=== PATIENT | female | born 1995 | race Caucasian/White ===

== ENCOUNTER → 2023-05-13 15:00 | Outpatient (ROUT) | payer OTHER, MEDICAID, SELFPAY ==
[2023-05-14 13:42] LABS: Candida species Positive (Negative); Gardnerella vaginalis Negative (Negative); Trichomoas vaginalis Negative (Negative)
== END ==
PROVIDERS: Visit Provider Physician Assistant Medical
DX: N89.8 Other specified noninflammatory disorders of vagina (principal); Z20.2 Contact with and (suspected) exposure to infections with a predominantly sexual mode of transmission
CPT/HCPCS: 87480; 87510; 87660

== ENCOUNTER → 2023-05-13 16:38 | Outpatient (CLI) | payer OTHER, MEDICAID, SELFPAY ==
[2023-05-13 17:24] LABS: Add Manual Diff / Slide Review NO; Basophils Absolute Auto 100 /uL (0-100); Basophils Percent Auto 1.3 % (0-2); Eosinophils Absolute Auto 100 /uL (0-450); Eosinophils Percent Auto 2.3 % (2-4); Hematocrit 37.7 % (36-46); Hemoglobin 12.7 g/dL (12.0-16.0); Lymphocytes Absolute Auto 2400 /uL (1100-4500); Lymphocytes Percent Auto 37.3 % (25-40); Mean Corpuscular HGB Conc 33.8 % (30-36); Mean Corpuscular Hemoglobin 27.2 PG (26-34); Mean Corpuscular Volume 80.6 fL (80-100); Monocytes Absolute Auto 500 /uL (0-900); Monocytes Percent Auto 7.9 % (3-14); Neutrophils Absolute Auto 3200 /uL (1500-7000); Neutrophils Percent Auto 51.2 % (50-75); Platelet Count 310 X10^3/uL (150-400); Red Blood Cell Count 4.68 X10^6/uL (4.0-5.2); Red Cell Distribution Width 13.3 % (11.6-14.8); White Blood Cell Count 6.3 X10^3/uL (4.5-11.0)
[2023-05-13 17:55] LABS: INR 1.1 (0.9-1.3); Prothrombin Time 12.2 SECONDS (9.4-12.5)
[2023-05-13 17:58] LABS: PTT Partial Thromboplastin Tim 33 SECONDS (25.1-36.5)
[2023-05-13 18:34] LABS: TSH w/ Reflex to FT4 1.84 uIU/mL (0.47-4.68)
[2023-05-13 19:35] LABS: HIV 1 & 2 Ab/Ag 4th Gen Combo NEGATIVE (NEGATIVE); Hep C Virus Ab w/Reflex Quant NEGATIVE s/c (NEGATIVE); Hepatitis B Surface Antigen NEGATIVE s/c (NEGATIVE)
[2023-05-15 03:47] LABS: RPR Screen Non Reactive (Non Reactive)
[2023-05-17 16:58] LABS: Factor VIII Activity, Clotting 66 % (56-140); Von Willebrand Factor Antigen 74 % (50-200)
[2023-05-19 17:27] LABS: HSV 2 IGG AB 0.95
== END ==
PROVIDERS: Referring Provider Physician Assistant Medical; Visit Provider Physician Assistant Medical
DX: N92.0 Excessive and frequent menstruation with regular cycle (principal); R79.1 Abnormal coagulation profile; O72.1 Other immediate postpartum hemorrhage; N89.8 Other specified noninflammatory disorders of vagina; Z20.2 Contact with and (suspected) exposure to infections with a predominantly sexual mode of transmission; Z11.3 Encounter for screening for infections with a predominantly sexual mode of transmission
CPT/HCPCS: 36415; 84443; 85025; 85240; 85246; 85610; 85730; 86592; 86695; 86696; 86803; 87340; 87389; 87480; 87510; 87660

== ENCOUNTER → 2023-05-20 06:56 | Outpatient (CLI) | payer OTHER, MEDICAID, SELFPAY ==
--- NOTE | 2023-05-20 06:57 | DI.US.S_ITS ---
PROCEDURE: US PELVIC COMPLETE INDICATIONS: Left pelvic pain and menorrhagia TECHNIQUE: Real-time scanning was performed of the pelvic organs, with image documentation. Additional endovaginal scanning was necessary due to incomplete visualization of the adnexal and endometrial structures by transabdominal scanning. COMPARISON: None. FINDINGS: Uterus: Uterus is anteverted and normal in size at 8.4 x 4.5 x 5.6 cm. The myometrium is homogeneous. The endometrium measures 8.3 mm combined thickness. Ovaries: The right ovary measures 1.6 x 2.9 x 1.6 cm, with a calculated ovarian volume of 3.9 cc. The left ovary measures 1.8 x 4.2 x 2.1 cm, with a calculated ovarian volume of 8.3 cc. The ovaries have a normal sonographic appearance. Less than 12 follicles can be seen in each ovary. No adnexal masses are seen. There is an involuting cyst in the left ovary measuring 1.8 x 1.3 x 2.0 cm. Other: No pathologic free abdominal or pelvic fluid. IMPRESSION: Normal sonographic appearance of the uterus and endometrium. Normal sonographic appearance of the bilateral ovaries. Involuting left ovarian simple cyst measuring up to 2.0 centimeters. We strive to produce accurate, complete, and clear reports of imaging services. To assist us in improving patient care, this report was composed using standard report templates and voice recognition software. Therefore, it may contain abnormal punctuation, insertions and/or omissions. Occasional wrong-word or sound-alike substitutions may occur. Though we review the report and make efforts to correct it, we do recommend that the report be read carefully in proper context to recognize any text inaccuracies. Approved by: Yady Hatfield M.D. on 05/20/2023 at 9:02
== END ==
LOC: US 06:57
PROVIDERS: Referring Provider Physician Assistant Medical; Visit Provider Physician Assistant Medical
DX: N92.0 Excessive and frequent menstruation with regular cycle (principal); N83.292 Other ovarian cyst, left side; R10.2 Pelvic and perineal pain
CPT/HCPCS: 76830; 76856; 93976

== ENCOUNTER 2023-06-15 00:55 | Emergency (ER) | payer OTHER, MEDICAID, SELFPAY ==
[2023-06-15] VITALS (10 sets, daily range): BP systolic 114–157; BP diastolic 71–89; PULSE 93–138; RESP 12–21; TEMP 36.4–36.7; O2SAT 81–100; BMI 18.8
--- NOTE | 2023-06-15 00:58 | ED.ARRPALP ---
HPI - Arrhythmia/Palpitations General Chief Complaint: Arrhythmia/Palpitations Stated Complaint: fast heartbeat/chest pain Time Seen by Provider: 06/15/23 00:56 Source: patient, RN notes reviewed and old records reviewed Mode of arrival: Ambulatory Limitations: no limitations History of Present Illness HPI narrative: 27-year-old female with a history of sinus tachycardia who presents with complaint of substernal left-sided chest pain that has been going on throughout the day and started yesterday. Patient states radiates towards her back. Denies fevers or chills no cold cough or congestion. She does feel little short of breath. Patient denies any nausea or vomiting. No syncope. She is felt little lightheaded occasionally. No diarrhea or constipation, no urinary symptoms. No swelling bilateral lower extremities. She states heart rate tends to run in the 100-120 range. She states she has seen a hemstitching machine operator in the past she is sinus tachycardia. Patient states they did not tell her any other causes. She has not on any daily medications. No oral contraceptives or estrogen. States no prior surgeries besides eyes surgeries when she was very young. Denies tobacco, denies alcohol, denies recreational drugs. Denies any caffeine intake. Related Data Previous Rx's Medication Instructions Recorded fluconazole 150 mg tablet 150 mg PO Q3D 2 doses #2 tabs 05/17/23 imiquimod 5 % topical cream packet 1 applic topical .COMPLEX #12 ea 05/28/23 Allergies Allergy/AdvReac Type Severity Reaction Status Date / Time No Known Drug Allergies Allergy Unverified 05/13/23 10:05 Review of Systems Review of Systems ROS Unobtainable: All systems reviewed & are unremarkable except as noted in HPI and below Patient History Medical History Hx of sinus tachycardia Vaginal Discharge Pelvic pain hemorrhage Prolonged bleeding time Menorrhagia Social History Smoking Status: Never smoker Smoking Status: Never smoker Exam Narrative Exam Narrative: GENERAL: Alert and oriented x three, thin female in mild distress HEENT: Head normocephalic, atraumatic, EOMI, pupils reactive, face symmetric, moist mucous membranes NECK: Supple, full range of motion CARDIOVASCULAR: Tachycardic but regular rate and rhythm without murmurs, rubs or gallops. No JVD. No swelling bilateral lower extremities. RESPIRATORY: Breath sounds equal bilaterally, no wheezes rales or rhonchi. No tachypnea or accessory muscle use. Patient's speaks in full sentences. ABDOMEN: Soft, nontender. Nondistended. Normoactive bowel sounds all 4 quadrants. No guarding or rebound, rigidity, no mass : No CVA tenderness EXTREMITIES: Normal range of motion, no clubbing or edema. Neurovascularly intact NEUROLOGICAL: Cranial nerves II through XII grossly intact. Moving all extremities. Normal gait. SKIN: Warm, dry, no petechiae, no rashes or lesions. Initial Vital Signs Initial Vital Signs: Vital Signs Temperature 98.1 F 06/15/23 01:03 Pulse Rate 138 H 06/15/23 01:03 Respiratory Rate 20 06/15/23 01:03 Blood Pressure 157/89 H 06/15/23 01:03 Pulse Oximetry 100 06/15/23 01:03 Oxygen Delivery Method Room Air 06/15/23 01:03 Scores PERC Score Age greater than or equal to 50 years: No Heart rate greater than or equal to 100 bpm: Yes Room Air O2 Sat less than 95%: No Unilateral leg swelling: No Recent trauma or surgery: No Hemoptysis: No Prior PE or DVT: No Hormone Use: No Total PERC Score: 1 Course Orders Ordered: ED Orders 06/15/23 01:08 XR chest 1V Stat EKG-12 Lead Stat 06/15/23 01:15 Complete Blood Count AUTO DIFF Stat Comprehensive Metabolic Panel Stat D Dimer Stat Lipase Stat Magnesium Stat Troponin & CK Cardiac Panel Stat 06/15/23 01:57 CT angio chest PE protocol Stat Discontinued Medications Sodium Chloride (Normal Saline 0.9%) 1,000 mls @ 1,000 mls/hr IV BOLUS ONE Stop: 06/15/23 02:11 Last Infusion: 06/15/23 03:08 Dose: Infused Documented By: Admin: 06/15/23 01:35 Dose: 1,000 mls/hr Documented By: LEONARDO Vital Signs Vital signs: Vital Signs - 8 hr 06/15/23 01:03 06/15/23 01:05 06/15/23 01:06 Temperature 98.1 F Pulse Rate 138 H 115 H 116 H Respiratory Rate 20 17 21 Blood Pressure 157/89 H Pulse Oximetry 100 100 100 Oxygen Delivery Method Room Air 06/15/23 01:06 06/15/23 01:30 06/15/23 01:30 Temperature Pulse Rate 99 H Respiratory Rate 12 Blood Pressure 132/84 116/79 Pulse Oximetry 97 Oxygen Delivery Method 06/15/23 02:00 06/15/23 02:00 06/15/23 02:34 Temperature Pulse Rate 93 H Respiratory Rate 17 Blood Pressure 115/80 Pulse Oximetry 98 81 L Oxygen Delivery Method Room Air 06/15/23 02:35 06/15/23 02:35 06/15/23 03:00 Temperature Pulse Rate 99 H 94 H Respiratory Rate 21 18 Blood Pressure 118/76 Pulse Oximetry 100 97 Oxygen Delivery Method 06/15/23 03:00 06/15/23 03:30 06/15/23 03:30 Temperature Pulse Rate 95 H Respiratory Rate 14 Blood Pressure 114/78 118/71 Pulse Oximetry 96 Oxygen Delivery Method 06/15/23 03:41 Temperature 97.6 F Pulse Rate Respiratory Rate Blood Pressure Pulse Oximetry Oxygen Delivery Method MDM - Arrhythmia/Palpitations Lab Data 06/15/23 01:15 06/15/23 01:15 Labs: Lab Results 06/15/23 Range/Units 01:15 WBC 6.9 (4.5-11.0) X10^3/uL RBC 4.20 (4.0-5.2) X10^6/uL Hgb 11.3 L (12.0-16.0) g/dL Hct 33.6 L (36-46) % MCV 80.2 (80-100) fL MCH 26.9 (26-34) PG MCHC 33.5 (30-36) % RDW 14.1 (11.6-14.8) % Plt Count 230 (150-400) X10^3/uL Neut % (Auto) 44.1 L (50-75) % Lymph % (Auto) 42.0 H (25-40) % [place] % (Auto) 10.6 (3-14) % Eos % (Auto) 2.3 (2-4) % Baso % (Auto) 1.0 (0-2) % Neut # (Auto) 3000 (7193-1603) /uL Lymph # (Auto) 2900 (2017-6692) /uL [place] # (Auto) 700 (0-900) /uL Eos # (Auto) 200 (0-450) /uL Baso # (Auto) 100 (0-100) /uL D-Dimer 1465 H (<500) ng/ml Sodium 138 (137-145) mmol/L Potassium 3.4 (3.4-5.1) mmol/L Chloride 105 (98-107) mmol/L Carbon Dioxide 24 (22-32) mmol/L BUN 19 H (7-17) mg/dL Creatinine 0.69 (0.52-1.04) mg/dL Estimated GFR > 60 (>60) mL/min BUN/Creatinine Ratio 27.5 H (6-22) Glucose 108 H (70-100) mg/dL Calcium 9.0 (8.4-10.2) mg/dL Magnesium 1.6 (1.6-2.3) mg/dL Total Bilirubin 0.4 (0.2-1.3) mg/dL AST 24 (14-36) IU/L ALT 15 (<35) IU/L Alkaline Phosphatase 59 (38-126) U/L Total Creatine Kinase 57 (30-135) U/L Troponin I < 0.012 (0.01-0.034) ng/mL Total Protein 7.3 (6.3-8.2) g/dL Albumin 4.3 (3.5-5.0) g/dL Globulin 3.0 (1.7-4.1) g/dL Albumin/Globulin Ratio 1.4 (1.0-2.8) Lipase 172 (23-300) U/L Imaging Data Chest x-ray: Radiologist's Impresson: [address] [address] XRay Report Signed Patient: Jeyson Bullock MR#: [id number] : 1995 Acct:[id number] Age/Sex: 27 / F Date of Service: 06/15/23 Loc: ED Accession Number: [id number] Procedure: XR chest 1V Ordering Provider: Kamila Cortez D.O. PROCEDURE: XR CHEST 1V INDICATIONS: chest pain TECHNIQUE: One view of the chest was acquired. COMPARISON: None. FINDINGS: Surgical changes and devices: None. Lungs and pleura: Lungs are clear. No pleural effusions or pneumothorax. Mediastinum: Mediastinal contours appear normal. Heart size is normal. Bones and chest wall: No suspicious bony lesions. Overlying soft tissues appear unremarkable. IMPRESSION: No acute cardiopulmonary abnormality is seen. Dictated by: Placido Paul M.D. on 06/15/2023 at 1:27 Approved by: Placido Paul M.D. on 06/15/2023 at 1:27 CT scan - chest: Radiologist's Impresson: Lungs are clear.? No infiltrate, consolidation, atelectasis or mass appreciated.? No pleural or pericardial effusion is evident.? Heart size is normal.? No mediastinal or hilar adenopathy.? Central airways are unremarkable.? No significant abnormality aorta is appreciated.? No evidence of aneurysm or dissection.? Images through upper portion of the abdomen are unremarkable.? No significant bone lesion identified.? Suboptimal opacification peripheral pulmonary arterial tree.? Small peripheral embolus not ruled out.? There is no evidence of pulmonary infarct. ECG Data Attestation: I personally reviewed and interpreted this ECG as follows: Prior ECG tracings: not available for review Interpretation: Sinus tachycardia rate of 111 DE 176 QRS [address]TC [address] Patient has [address] depression in leads [address] elevation appreciated. No priors for comparison. MDM Narrative Medical decision making narrative: 27-year-old female with known sinus tachycardia who is seen cardiology in the past she has not on any daily medications presents with complaint of left-sided chest pain radiating down to her back and arm. Patient is tachycardic, not febrile no hypotension or hypoxia. Labs CBC shows a hemoglobin of 11.3, white count 6.9, platelets of 230 neutrophils are low lymphocytes are somewhat elevated. Dimer is 1465. Electrolytes are negative BUN 19 creatinine is 0.69 glucose is 108 LFTs are negative. Troponin is negative. EKG shows ST depression 3 and avF, sinus tachycardia. No other acute changes appreciated. No priors for comparison. Chest x-ray is negative for acute change. Patient received 1 L of fluids, patient heart rate improving into the 90s. Discussed CT findings, positive dimer prompting CT angio, patient is agreeable. CT Angio chest is negative for acute PE, no infarct with no other acute findings appreciated. CT angio suboptimal implication peripheral pulmonary artery tree but no central pulmonary emboli. Patient's heart rate has improved with fluids has been consistently in the 90s, no hypotension no fever no hypoxia. Patient has had greater than 24 hours of chest pain with negative troponin. Patient is felt appropriate for discharge home with plan for follow-up. Discharge Plan Departure Patient Disposition: Home Clinical Impression: Tachycardia, Chest pain Activity Restrictions/Additional Instructions: Please follow up for recheck. I hope you feel better soon. Your labs showed a mild anemia, BUN was slightly elevated which can reflect some dehydration. CT of your chest did not show any major changes. You can take Tylenol up to a 1000 mg every 6 hours and/or ibuprofen up to 600 mg every 6 hours as needed for pain. Please return if you are having worsening symptoms new or worsening chest pain, shortness of breath, lightheadedness or passing out, new swelling of your extremities, persistent vomiting or other new or concerning changes. Prescriptions: No Action fluconazole 150 mg tablet 150 mg PO Q3D Qty: 2 0RF imiquimod 5 % cream in packet 1 applic topical .COMPLEX Qty: 12 0RF Rx Instructions: 1 applic topically Apply topically to the affected area once daily at bedtime. Leave on the skin for 8 hours and then remove with mild soap and water in the morning. Can continue treatment for up to 8 weeks.; Stand Alone Forms: Patient Portal/API
--- NOTE | 2023-06-15 01:08 | DI.RAD.S_ITS ---
PROCEDURE: XR CHEST 1V INDICATIONS: chest pain TECHNIQUE: One view of the chest was acquired. COMPARISON: None. FINDINGS: Surgical changes and devices: None. Lungs and pleura: Lungs are clear. No pleural effusions or pneumothorax. Mediastinum: Mediastinal contours appear normal. Heart size is normal. Bones and chest wall: No suspicious bony lesions. Overlying soft tissues appear unremarkable. IMPRESSION: No acute cardiopulmonary abnormality is seen. Dictated by: Placido Paul M.D. on 06/15/2023 at 1:27 Approved by: Placido Paul M.D. on 06/15/2023 at 1:27
[2023-06-15 01:28] LABS: Add Manual Diff / Slide Review NO; Basophils Absolute Auto 100 /uL (0-100); Eosinophils Absolute Auto 200 /uL (0-450); Eosinophils Percent Auto 2.3 % (2-4); Hematocrit 33.6 % (36-46); Hemoglobin 11.3 g/dL (12.0-16.0); Lymphocytes Absolute Auto 2900 /uL (1100-4500); Mean Corpuscular HGB Conc 33.5 % (30-36); Mean Corpuscular Hemoglobin 26.9 PG (26-34); Mean Corpuscular Volume 80.2 fL (80-100); Monocytes Absolute Auto 700 /uL (0-900); Monocytes Percent Auto 10.6 % (3-14); Neutrophils Absolute Auto 3000 /uL (1500-7000); Neutrophils Percent Auto 44.1 % (50-75); Platelet Count 230 X10^3/uL (150-400); Red Cell Distribution Width 14.1 % (11.6-14.8); White Blood Cell Count 6.9 X10^3/uL (4.5-11.0)
[2023-06-15] MEDS: SODIUM CHLORIDE 0.9% 1,000 ML 1000 ML IV (01:35)
[2023-06-15 01:44] LABS: Alanine Aminotransferase 15 IU/L (<35); Albumin 4.3 g/dL (3.5-5.0); Albumin Globulin Ratio 1.4 (1.0-2.8); Alkaline Phosphatase 59 U/L (38-126); Aspartate Aminotransferase 24 IU/L (14-36); BUN Creatinine Ratio 27.5 (6-22); Bilirubin Total 0.4 mg/dL (0.2-1.3); Blood Urea Nitrogen 19 mg/dL (7-17); Carbon Dioxide 24 mmol/L (22-32); Chloride 105 mmol/L (98-107); Creatine Kinase 57 U/L (30-135); Estimated Glomerular Filt Rate > 60 mL/min (>60); Glucose 108 mg/dL (70-100); HEMOLYSIS < 15 (0-50); Lipase 172 U/L (23-300); Magnesium 1.6 mg/dL (1.6-2.3); Potassium 3.4 mmol/L (3.4-5.1); Sodium 138 mmol/L (137-145); Total Protein 7.3 g/dL (6.3-8.2)
[2023-06-15 01:50] LABS: D Dimer 1465 ng/ml (<500)
[2023-06-15 01:54] LABS: Troponin I < 0.012 ng/mL (0.01-0.034)
--- NOTE | 2023-06-15 01:57 | DI.CT.S_ITS ---
PROCEDURE: CT ANGIO CHEST PE PROTOCOL INDICATIONS: chest pain, left side, elevated dimer, tachycardia TECHNIQUE: After the administration of intravenous contrast, 2 mm thick sections acquired from the pulmonary apices to the posterior costophrenic angles. 3-dimensional maximum intensity projection (MIP) coronal and sagittal reformats were then acquired through the thorax. For radiation dose reduction, the following was used: automated exposure control, adjustment of mA and/or kV according to patient size. COMPARISON: [facility], CR, XR CHEST 1V, 06/15/2023, 1:10. FINDINGS: Image quality: There is streak artifact seen through the level of the shoulders. Limited by bolus timing. Pulmonary arteries: The bolus of the contrast injection is suboptimal. The main pulmonary artery measures approximately 140 Hounsfield units. Pulmonary artery densities are greater than 250 Hounsfield units are considered to be ideal for evaluation of pulmonary embolism. However, no large or central pulmonary emboli are seen on these images. No pulmonary emboli are seen more distally, although sensitivity for detection of such is limited on this study. Lower Neck: No enlarged lymph nodes. Thyroid: No thyroid nodules which require sonographic follow up, per consensus guidelines. Axillae: No enlarged lymph nodes. Chest Wall: Unremarkable. Bones: Unremarkable. Lungs and Pleura: No pneumothorax or pleural effusions. No consolidation or suspicious nodules. Heart: Heart size is normal. No pericardial effusion. Thoracic Vessels: No aortic aneurysm. Mediastinum and [place]: No enlarged lymph nodes. There is a small amount residual thymus tissue seen, which is not regarded to be pathologic in a patient of this age. Esophagus: No wall thickening. No hiatal hernia. Upper Abdomen: Visualized upper abdomen solid organs and bowel loops appear normal. IMPRESSION: No large or central pulmonary embolism is seen. No acute cardiopulmonary process. Note: No significant discrepancy from the preliminary report. Dictated by: Georgi Suarez M.D. on 06/15/2023 at 8:28 Approved by: Georgi Suarez M.D. on 06/15/2023 at 8:30
== END 2023-06-15 03:42 | disposition home or self-care (01) ==
PROVIDERS: Emergency Provider Emergency Medicine
DX: R00.0 Tachycardia, unspecified (principal); R07.9 Chest pain, unspecified
CPT/HCPCS: 36415; 71045; 71275; 80053; 82550; 83690; 83735; 84484; 85025; 85379; 93005; 96360; 96361; 99284; 99285; Q9967

== ENCOUNTER → 2023-08-12 15:19 | Outpatient (CLI) | payer OTHER, MEDICAID, SELFPAY | LOC: CAR 15:19 | PROVIDERS: PCP Family Medicine; Referring Provider Family Medicine; Visit Provider Family Medicine | DX: Z86.79 Personal history of other diseases of the circulatory system (principal); R55 Syncope and collapse | CPT/HCPCS: 93242 ==

== ENCOUNTER 2023-10-06 15:15 | Emergency (ER) | payer OTHER, MEDICAID, SELFPAY ==
[2023-10-06 15:24] VITALS: BP 125/79; PULSE 99; O2SAT 94
[2023-10-06 15:25] VITALS: BP 125/79; PULSE 99; RESP 16; TEMP 36.7; O2SAT 99; BMI 18.8
--- NOTE | 2023-10-06 15:26 | ED.FEMALEGU ---
HPI - Female Genitourinary General Chief complaint: Vaginal Bleeding Stated complaint: Wants US to assess Preg Viability Time Seen by Provider: 10/06/23 15:21 History of Present Illness HPI Narrative: at approximately 6wks gestation presents for abdominal bleeding and cramping in early . Patient states that 23 hours ago she decided to electively terminate her with mifepristone. However she subsequently changed her mind and was then prescribed progesterone to counteract the effects. She noticed spotting and cramping last night in his concerned about viability and bleeding. Reports history of placental abruption with her last at 34 weeks causing loss of . States blood type O+ Related Data Previous Rx's Medication Instructions Recorded imiquimod 5 % topical cream packet 1 applic topical .COMPLEX #12 ea 05/28/23 dextroamphetamine-amphetamine ER 5 5 mg PO QAM #30 caps 09/26/23 mg 24hr capsule,extend release (Adderall XR) Allergies Allergy/AdvReac Type Severity Reaction Status Date / Time bupropion [From Wellbutrin] AdvReac Mild Verified 10/06/23 15:42 Review of Systems Review of Systems Narrative: See HPI Patient History Medical History ADHD Hx of sinus tachycardia Vaginal Discharge Pelvic pain hemorrhage Prolonged bleeding time Menorrhagia Substance Use Type: does not use Exam Narrative Exam Narrative: Const: Awake, alert, no acute distress, nontoxic appearing Cardiac: regular rate, regular rhythm RESP: unlabored GI: Soft, nontender, nondistended Skin: Warm, Dry, intact, no rashes Neuro: AO x3, CN II-XII grossly intact, moves all extremities Initial Vital Signs Initial Vital Signs: Vital Signs Pulse Rate 99 H 10/06/23 15:24 Blood Pressure 125/79 10/06/23 15:24 Pulse Oximetry 94 10/06/23 15:24 Course Orders Ordered: ED Orders 10/06/23 15:44 ABO RH Type Stat Beta HCG, Quant [HCG Quantitative /Beta subunit] Stat CBC Auto Diff [Complete Blood Count AUTO DIFF] Stat CMP [Comprehensive Metabolic Panel] Stat 10/06/23 15:53 US OB transvaginal Stat Vital Signs Vital signs: Vital Signs - 8 hr 10/06/23 15:24 10/06/23 15:24 10/06/23 15:25 Temperature 98.1 F Pulse Rate 99 H 99 H Respiratory Rate 16 Blood Pressure 125/79 125/79 Pulse Oximetry 94 99 Oxygen Delivery Method Room Air MDM - Female Genitourinary Differential Diagnosis Differential diagnosis: Likely urinary tract infection, ruptured ovarian cyst and dysmenorrhea Lab Data 10/06/23 15:44 10/06/23 15:44 Labs: Lab Results 10/06/23 Range/Units 15:44 WBC 9.8 (4.5-11.0) X10^3/uL RBC 4.42 (4.0-5.2) X10^6/uL Hgb 11.3 L (12.0-16.0) g/dL Hct 34.5 L (36-46) % MCV 78.1 L (80-100) fL MCH 25.5 L (26-34) PG MCHC 32.6 (30-36) % RDW 14.6 (11.6-14.8) % Plt Count 313 (150-400) X10^3/uL Neut % (Auto) 70.0 (50-75) % Lymph % (Auto) 20.5 L (25-40) % [place] % (Auto) 7.6 (3-14) % Eos % (Auto) 1.2 L (2-4) % Baso % (Auto) 0.7 (0-2) % Neut # (Auto) 6800 (2244-9051) /uL Lymph # (Auto) 2000 (2611-8151) /uL [place] # (Auto) 700 (0-900) /uL Eos # (Auto) 100 (0-450) /uL Baso # (Auto) 100 (0-100) /uL Sodium 140 (137-145) mmol/L Potassium 3.8 (3.4-5.1) mmol/L Chloride 107 (98-107) mmol/L Carbon Dioxide 27 (22-32) mmol/L BUN 11 (7-17) mg/dL Creatinine 0.65 (0.52-1.04) mg/dL Estimated GFR > 60 (>60) mL/min BUN/Creatinine Ratio 16.9 (6-22) Glucose 90 (70-100) mg/dL Calcium 9.1 (8.4-10.2) mg/dL Total Bilirubin 0.4 (0.2-1.3) mg/dL AST 25 (14-36) IU/L ALT 17 (<35) IU/L Alkaline Phosphatase 57 (38-126) U/L Total Protein 7.7 (6.3-8.2) g/dL Albumin 4.5 (3.5-5.0) g/dL Globulin 3.2 (1.7-4.1) g/dL Albumin/Globulin Ratio 1.4 (1.0-2.8) HCG, Quant 2636.2 mIU/mL Blood Type O Positive Imaging Data US - OB: Radiologist's Impression: PROCEDURE: US OB TRANSVAGINAL INDICATIONS: vag bleed 6 wks preg OUTSIDE/PRIOR DATING DATA: Last menstrual period (LMP): 08/25/2023. LMP-based estimated date of delivery (REBEL): 05/31/2024. First dating scan (date and location): 10/06/2023. Estimated date of delivery (REBEL) from first dating scan: 06/05/2024. TECHNIQUE: Real-time scanning was performed of the fetus, with image documentation. Endovaginal scanning: Performed for more detailed visualization COMPARISON: None. FINDINGS: An intrauterine gestational sac is seen, with a mean gestational sac diameter of 6 mm. A yolk sac is believed to be present, yet this is not well seen. No pole can be seen. No cardiac activity is seen, despite multiple attempts. Apparent corpus luteum can be seen involving the right ovary. The left ovary is not seen on these images. IMPRESSION: There is an intrauterine gestational sac, with an apparent yolk sac. No cardiac activity or pole can be seen. Close clinical followup, with serial beta-hCG and serial ultrasound are recommended, if clinically appropriate. Dictated by: Georgi Suarez M.D. on 10/06/2023 at 15:52 Approved by: Georgi Suarez M.D. on 10/06/2023 at 15:54 MDM Narrative Medical decision making narrative: Vaginal bleeding after taking elective pill. No acute distress, hemodynamically stable, abdomen soft. Blood type O positive. Ultrasound shows intrauterine gestational sac with yolk sac present. No cardiac activity noted. Recommended repeat hCG in 48-72 hours as well as OBGYN follow up Discharge Plan Departure Patient Disposition: Home Clinical Impression: Vaginal bleeding affecting early , Type O blood, Rh positive Instructions: DI for Vaginal Bleeding During Activity Restrictions/Additional Instructions: We were unable to visualize a heartbeat on ultrasound. This could be due to early , but also may be miscarriage. Follow up with OBGYN for assessment. If you are unable to make an appointment with OBGYN then you may need to come back to the emergency department in 48-72 hours for a repeat HCG. Prescriptions: No Action dextroamphetamine-amphetamine [Adderall XR] 5 mg capsule,extended release 24hr 5 mg PO QAM Qty: 30 0RF imiquimod 5 % cream in packet 1 applic topical .COMPLEX Qty: 12 0RF Rx Instructions: 1 applic topically Apply topically to the affected area once daily at bedtime. Leave on the skin for 8 hours and then remove with mild soap and water in the morning. Can continue treatment for up to 8 weeks.; Referrals: Makeda Hurt MD [Primary Care Provider] - Stand Alone Forms: Patient Portal/API
--- NOTE | 2023-10-06 15:53 | DI.US.S_ITS ---
PROCEDURE: US OB TRANSVAGINAL INDICATIONS: vag bleed 6 wks preg OUTSIDE/PRIOR DATING DATA: Last menstrual period (LMP): 08/25/2023. LMP-based estimated date of delivery (REBEL): 05/31/2024. First dating scan (date and location): 10/06/2023. Estimated date of delivery (REBEL) from first dating scan: 06/05/2024. TECHNIQUE: Real-time scanning was performed of the fetus, with image documentation. Endovaginal scanning: Performed for more detailed visualization COMPARISON: None. FINDINGS: An intrauterine gestational sac is seen, with a mean gestational sac diameter of 6 mm. A yolk sac is believed to be present, yet this is not well seen. No pole can be seen. No cardiac activity is seen, despite multiple attempts. Apparent corpus luteum can be seen involving the right ovary. The left ovary is not seen on these images. IMPRESSION: There is an intrauterine gestational sac, with an apparent yolk sac. No cardiac activity or pole can be seen. Close clinical followup, with serial beta-hCG and serial ultrasound are recommended, if clinically appropriate. Dictated by: Georgi Suarez M.D. on 10/06/2023 at 15:52 Approved by: Georgi Suarez M.D. on 10/06/2023 at 15:54
[2023-10-06 15:55] LABS: Add Manual Diff / Slide Review NO; Basophils Absolute Auto 100 /uL (0-100); Basophils Percent Auto 0.7 % (0-2); Eosinophils Absolute Auto 100 /uL (0-450); Eosinophils Percent Auto 1.2 % (2-4); Hematocrit 34.5 % (36-46); Hemoglobin 11.3 g/dL (12.0-16.0); Lymphocytes Absolute Auto 2000 /uL (1100-4500); Lymphocytes Percent Auto 20.5 % (25-40); Mean Corpuscular HGB Conc 32.6 % (30-36); Mean Corpuscular Hemoglobin 25.5 PG (26-34); Mean Corpuscular Volume 78.1 fL (80-100); Monocytes Absolute Auto 700 /uL (0-900); Monocytes Percent Auto 7.6 % (3-14); Neutrophils Absolute Auto 6800 /uL (1500-7000); Platelet Count 313 X10^3/uL (150-400); Red Blood Cell Count 4.42 X10^6/uL (4.0-5.2); Red Cell Distribution Width 14.6 % (11.6-14.8); White Blood Cell Count 9.8 X10^3/uL (4.5-11.0)
[2023-10-06 16:11] LABS: Alanine Aminotransferase 17 IU/L (<35); Albumin 4.5 g/dL (3.5-5.0); Albumin Globulin Ratio 1.4 (1.0-2.8); Alkaline Phosphatase 57 U/L (38-126); Aspartate Aminotransferase 25 IU/L (14-36); BUN Creatinine Ratio 16.9 (6-22); Bilirubin Total 0.4 mg/dL (0.2-1.3); Blood Urea Nitrogen 11 mg/dL (7-17); Calcium 9.1 mg/dL (8.4-10.2); Carbon Dioxide 27 mmol/L (22-32); Chloride 107 mmol/L (98-107); Estimated Glomerular Filt Rate > 60 mL/min (>60); Globulin 3.2 g/dL (1.7-4.1); Glucose 90 mg/dL (70-100); HEMOLYSIS < 15 (0-50); Potassium 3.8 mmol/L (3.4-5.1); Sodium 140 mmol/L (137-145); Total Protein 7.7 g/dL (6.3-8.2)
[2023-10-06 16:32] LABS: HCG Quantitative /Beta subunit 2636.2 mIU/mL
[2023-10-06 17:17] VITALS: BP 110/56; PULSE 90; RESP 16; O2SAT 97
== END 2023-10-06 17:19 | disposition home or self-care (01) ==
PROVIDERS: Emergency Provider Emergency Medicine; PCP Family Medicine
DX: O20.9 Hemorrhage in early pregnancy, unspecified (principal); Z67.40 Type O blood, Rh positive
CPT/HCPCS: 76817; 80053; 84702; 85025; 86900; 86901; 99283; 99284

== ENCOUNTER → 2024-01-16 16:09 | Outpatient (CLI) | payer OTHER, MEDICAID, SELFPAY ==
--- NOTE | 2024-01-16 16:10 | DI.US.S_ITS ---
PROCEDURE: US OB LIMITED INDICATIONS: + test, no period x2.5 months OUTSIDE/PRIOR DATING DATA: Last menstrual period (LMP): Unsure. LMP-based estimated date of delivery (REBEL): Not applicable. First dating scan (date and location): Today's exam. Estimated date of delivery (REBEL) from first dating scan: 07/11/2024. TECHNIQUE: Real-time scanning was performed of the fetus, with image documentation and biometric measurements. Endovaginal scanning: Not performed COMPARISON: None. FINDINGS: General: A single living intrauterine gestation is present. Presentation: Vertex. Placenta: Placental position is posterior , without previa. Questionable low lying placenta. Amniotic fluid index: 10.6 cm, normal range is 5-24 cm. Single deepest vertical pocket is 3.3 cm. heart rate: 160 beats per minute. Maternal cervical canal: 3.2 cm long. Normal lower limit is 2.5 cm. biometrics: Biparietal diameter: 2.8 cm, 15 weeks 1 day Head circumference: 10.2 cm, 14 weeks 5 days Abdominal circumference: 8.7 cm, 15 weeks 0 days Femur length: 1.3 cm, 13 weeks 6 days Clinically estimated gestational age: Not applicable Composite gestational age from present scan: 14 weeks 5 days Estimated weight and percentile: Not applicable Other: Not applicable. IMPRESSION: Single living intrauterine at 14 weeks 5 days, REBEL of 07/11/2024 based on today's examination. Possible low lying placenta. Attention on follow-up. We strive to produce accurate, complete, and clear reports of imaging services. To assist us in improving patient care, this report was composed using standard report templates and voice recognition software. Therefore, it may contain abnormal punctuation, insertions and/or omissions. Occasional wrong-word or sound-alike substitutions may occur. Though we review the report and make efforts to correct it, we do recommend that the report be read carefully in proper context to recognize any text inaccuracies. Dictated by: Phong Garces M.D. on 01/16/2024 at 23:31 Approved by: Phong Garces M.D. on 01/16/2024 at 23:32
== END ==
PROVIDERS: PCP Family Medicine; Referring Provider Obstetrics & Gynecology; Visit Provider Obstetrics & Gynecology
DX: Z33.1 Pregnant state, incidental (principal); N91.0 Primary amenorrhea; Z3A.14 14 weeks gestation of pregnancy
CPT/HCPCS: 76815

== ENCOUNTER → 2024-03-23 06:34 | Outpatient (CLI) | payer OTHER, MEDICAID, SELFPAY ==
--- NOTE | 2024-03-23 06:35 | DI.US.S_ITS ---
PROCEDURE: US OB >= 14 WEEKS FETUS INDICATIONS: anatomy scan OUTSIDE/PRIOR DATING DATA: Last menstrual period (LMP): Unsure LMP-based estimated date of delivery (REBEL): N/A First dating scan (date and location): 01/16/2024 Estimated date of delivery (REBEL) from first dating scan: 07/11/2024 The calculations are made using the ultrasound REBEL of 07/11/2024 TECHNIQUE: Real-time scanning was performed of the fetus, with image documentation and biometric measurements. Endovaginal scanning: Not performed COMPARISON: [facility], OB LIMITED, 01/16/2024, 16:24. FINDINGS: General: A single living intrauterine gestation is present. Presentation: Breech Placenta: Placental position is posterior, without previa. Amniotic fluid index: 15.3 cm, normal range is 5-24 cm. Single deepest vertical pocket is 4.4 cm. heart rate: 139 beats per minute. Maternal cervical canal: 4.4 cm long. Normal lower limit is 2.5 cm. biometrics: Biparietal diameter: 5.9 cm, 24 weeks 0 days Head circumference: 22.4 cm, 24 weeks 3 days Abdominal circumference: 21.2 cm, 25 weeks 5 days Femur length: 4.2 cm, 23 weeks 6 days Clinically estimated gestational age: 24 weeks 2 days Composite gestational age from present scan: 24 weeks 4 days Estimated weight and percentile: 736 g, 65th percentile Anatomic survey: Neuro: Ventricles are non-dilated at less than 10 mm. Cisterna magna is normal at 3-11 mm. Cerebellum is normal in size and morphology. Nuchal skin fold: Not evaluated due to gestational age. Face: Nose and lips, facial profile are normal. Spine: No evidence for spina bifida. Heart: 4-chambered heart is present, with normal ventricular outflow tracts. Diaphragm: Diaphragm is intact. Stomach: Left-sided stomach is present. Kidneys: No hydronephrosis. Normal is less than 5 mm in 2nd trimester, less than 7 mm in 3rd trimester. Cord: 3-vessel cord has orthotopic insertion. Soft tissue material is seen adjacent to the umbilical cord insertion onto the abdominal wall. Bladder: Normal in size. Extremities: All 4 extremities identified. IMPRESSION: 1. Single live intrauterine with appropriate interval growth. 2. Soft tissue material is seen adjacent to the abdominal umbilical cord insertion, which likely represents a portion of a extremity although gastroschisis cannot be excluded. Recommend follow-up exam with attention to the abdominal umbilical cord insertion. 3. anatomic survey is otherwise within normal limits. Approved by: Grupo Miller M.D. on 03/23/2024 at 9:10
== END ==
PROVIDERS: PCP Family Medicine; Referring Provider Student in an Organized Health Care Education/Training Program; Visit Provider Student in an Organized Health Care Education/Training Program
DX: Z34.92 Encounter for supervision of normal pregnancy, unspecified, second trimester (principal); Z3A.24 24 weeks gestation of pregnancy
CPT/HCPCS: 76811

== ENCOUNTER → 2024-03-27 11:47 | Outpatient (CLI) | payer OTHER, MEDICAID, SELFPAY ==
[2024-03-27 13:45] LABS: Basophils Absolute Auto 0 /uL (0-100); Basophils Percent Auto 0.4 % (0-2); Eosinophils Absolute Auto 100 /uL (0-450); Eosinophils Percent Auto 1.4 % (2-4); Hematocrit 26.8 % (36-46); Hemoglobin 8.5 g/dL (12.0-16.0); Lymphocytes Absolute Auto 1700 /uL (1100-4500); Lymphocytes Percent Auto 20.3 % (25-40); Mean Corpuscular HGB Conc 31.7 % (30-36); Mean Corpuscular Hemoglobin 20.5 PG (26-34); Mean Corpuscular Volume 64.8 fL (80-100); Monocytes Absolute Auto 600 /uL (0-900); Monocytes Percent Auto 7.5 % (3-14); Neutrophils Absolute Auto 6000 /uL (1500-7000); Neutrophils Percent Auto 70.4 % (50-75); Platelet Count 304 X10^3/uL (150-400); Red Blood Cell Count 4.13 X10^6/uL (4.0-5.2); Red Cell Distribution Width 17.9 % (11.6-14.8); White Blood Cell Count 8.6 X10^3/uL (4.5-11.0)
[2024-03-27 13:46] LABS: Add Manual Diff / Slide Review SLIDE REVIEW
[2024-03-27 14:28] LABS: Anisocytosis 2+; Microcytosis 2+; Ovalocytes 1+
[2024-03-27 14:31] LABS: Appearance Urine UA CLEAR; Bilirubin Urine UA NEGATIVE (NEGATIVE); Color Urine UA YELLOW; Glucose Urine UA NEGATIVE (Negative); Ketones Urine UA NEGATIVE (NEGATIVE); Leukocyte Esterase Urine UA NEGATIVE (NEGATIVE); Nitrite Urine UA NEGATIVE (Negative); Occult Blood Urine UA NEGATIVE (Negative); Protein Urine UA NEGATIVE (Negative); Specific Gravity Urine UA >=1.030 (1.000-1.035); Urobilinogen Urine UA 0.2 E.U./dL (0.2)
[2024-03-29 12:38] LABS: Varicella IgG Antibody Non Reactive (Non Reactive)
[2024-03-30 15:50] LABS: Hepatitis B Surface Antigen NEGATIVE s/c (NEGATIVE); Rubella Antibody IgG 7.2 IU/mL (>15)
[2024-03-30 16:09] LABS: HIV 1 & 2 Ab/Ag 4th Gen Combo NEGATIVE (NEGATIVE); Hep C Virus Ab w/Reflex Quant NEGATIVE s/c (NEGATIVE)
[2024-03-31 03:37] LABS: RPR Screen Non Reactive (Non Reactive)
== END ==
PROVIDERS: PCP Family Medicine; Referring Provider Student in an Organized Health Care Education/Training Program; Visit Provider Obstetrics & Gynecology
DX: Z34.92 Encounter for supervision of normal pregnancy, unspecified, second trimester (principal); Z3A.24 24 weeks gestation of pregnancy
CPT/HCPCS: 36415; 80055; 81003; 86787; 86803; 86850; 86900; 86901; 87086; 87389

== ENCOUNTER → 2024-04-23 15:05 | Outpatient (CLI) | payer OTHER, SELFPAY ==
[2024-04-23 17:53] LABS: Hemoglobin 8.7 g/dL (12.0-16.0)
== END ==
PROVIDERS: PCP Family Medicine; Referring Provider Obstetrics & Gynecology; Visit Provider Obstetrics & Gynecology
DX: Z34.82 Encounter for supervision of other normal pregnancy, second trimester (principal); Z3A.26 26 weeks gestation of pregnancy
CPT/HCPCS: 36415; 85014; 85018

== ENCOUNTER → 2024-05-07 07:10 | Outpatient (CLI) | payer OTHER, SELFPAY ==
--- NOTE | 2024-05-07 07:11 | DI.US.S_ITS ---
PROCEDURE: US OB FOLLOW UP INDICATIONS: POSSIBLE SOFT TISSUE NEXT TO CORD INSERTION ?GASTROSCHISIS. POSTERIOR PLACENTA FOLLOW UP. OUTSIDE/PRIOR DATING DATA: Last menstrual period (LMP): Unsure. LMP-based estimated date of delivery (REBEL): Not applicable. First dating scan (date and location): 01/16/24. Estimated date of delivery (REBEL) from first dating scan: 07/11/24. The calculations are made using the working REBEL of 07/11/24. TECHNIQUE: Real-time scanning was performed of the fetus, with image documentation. Endovaginal scanning: For improved cervical and placental detail. COMPARISON: None. FINDINGS: A single living intrauterine gestation is present. Presentation: Vertex. Placenta: Placental position is posterior. The placenta is low lying, 1.5 cm from the internal cervical os measured on transvaginal imaging. Amniotic fluid index: 16.2 cm, normal range is 5-24 cm. Single deepest vertical pocket is 4.7 cm. heart rate: 128 beats per minute. Maternal cervical canal: Closed and 3.5 cm long. Normal lower limit is 2.5 cm. Clinically estimated gestational age: 30 weeks five days The umbilical cord insertion is within normal limits. No evidence of omphalocele or gastroschisis. IMPRESSION: Posterior low lying placenta. cord insertion within normal limits. Closed cervix and normal amniotic fluid volume. Live fetus in vertex presentation. Dictated by: Alejandrina Nogueira M.D. on 05/07/2024 at 15:36 Approved by: Alejandrina Nogueira M.D. on 05/07/2024 at 15:43
== END ==
PROVIDERS: PCP Family Medicine; Referring Provider Obstetrics & Gynecology; Visit Provider Obstetrics & Gynecology
DX: O28.3 Abnormal ultrasonic finding on antenatal screening of mother (principal); O44.43 Low lying placenta NOS or without hemorrhage, third trimester; Z3A.30 30 weeks gestation of pregnancy
CPT/HCPCS: 76816; 76817

== ENCOUNTER → 2024-06-16 10:11 | Outpatient (CLI) | payer OTHER, SELFPAY ==
[2024-06-17 13:20] LABS: Strep Grp B PCR NEG for Grp B Strep
== END ==
PROVIDERS: PCP Family Medicine; Visit Provider Obstetrics & Gynecology
DX: Z34.83 Encounter for supervision of other normal pregnancy, third trimester (principal); Z3A.36 36 weeks gestation of pregnancy
CPT/HCPCS: 87653

== ENCOUNTER 2024-07-06 05:55 | Inpatient (IN) | payer OTHER, SELFPAY ==
[2024-07-06 06:35] LABS: Add Manual Diff / Slide Review NO; Basophils Absolute Auto 200 /uL (0-100); Basophils Percent Auto 1.6 % (0-2); Eosinophils Absolute Auto 100 /uL (0-450); Eosinophils Percent Auto 1.2 % (2-4); Hematocrit 26.8 % (36-46); Hemoglobin 8.2 g/dL (12.0-16.0); Lymphocytes Absolute Auto 1800 /uL (1100-4500); Lymphocytes Percent Auto 18.4 % (25-40); Mean Corpuscular HGB Conc 30.7 % (30-36); Mean Corpuscular Hemoglobin 19.3 PG (26-34); Mean Corpuscular Volume 62.9 fL (80-100); Monocytes Absolute Auto 1000 /uL (0-900); Monocytes Percent Auto 10.2 % (3-14); Neutrophils Absolute Auto 6600 /uL (1500-7000); Neutrophils Percent Auto 68.6 % (50-75); Platelet Count 274 X10^3/uL (150-400); Red Blood Cell Count 4.26 X10^6/uL (4.0-5.2); Red Cell Distribution Width 20.6 % (11.6-14.8); White Blood Cell Count 9.7 X10^3/uL (4.5-11.0)
[2024-07-06 06:54] LABS: Anisocytosis 2+; Hypochromasia 1+; Microcytosis 2+; Tear Drop Cells 1+
[2024-07-06 06:57] VITALS: BP 132/79
[2024-07-06] MEDS: LACTATED RINGERS 1,000 ML 999 ML IV (07:21)
--- NOTE | 2024-07-06 07:27 | PM.OBHP.IH.1 ---
OB HPI Date/Time Date of admission: 07/06/24 Date Patient Seen: 07/06/24 Time Patient Seen: 07:00 History of Present Condition Chief complaint: Section REBEL Calculator Estimated Delivery Date Method Current WG Current Estimate 07/10/24 Ultrasound #1 39w 3d Estimated Gestational Age (weeks): 39.3 : 4 Para: 3 Narrative: 28yo at 39w3d by 2nd trimester (13wk) US presents for schedule repeat section. Patient was originally scheduled for procedure 07/03/24, however postponed as unit was on diversion. Patient states no issues over the intervening weekend, +FM, denies VB/LOF/ctx. Moderate anxiety in anticipation of procedure. This morning patient states she NO LONGER DESIRES PERMANENT SURGICAL STERILIZATION and bilateral salpingectomy was removed from consent/plan of procedure. OBHx notable for h/o prior PPH (G1, ; G3, stat CS for placental abruption). Patient had entry into [facility] at approximately 15wga. Pt had +UPT in September 2023 and took mifepristone/misoprostol with subsequent vaginal bleeding, and then subsequently had amenorrhea for 2.5mos prior to determining repeat conception with confirmed with first US at 13wga. course has been most notable for symptomatic maternal anemia (h/h 8.2/26.8) on iron supplementation but no prior iron transfusion. anatomy scan initially noted possible omphalocele vs gastroschisis, resolved at time of interval assessment with noted persistent low-lying posterior placenta. Patient had completed DMAS consent for permanent surgical sterilization but today states she is unsure about permanent surgical sterilization with recommendation to omit this portion of procedure due to increased risk of regret per CREST trial. care: good care Dating criteria OB: based on 2nd trimester US only Ultrasounds: normal mid trimester US Abnormal ultrasound findings: low-lying posterior placenta Medical complications OB: other (symptomatic maternal anemia ) External History : 4 Para: 3 Preadmission Labs Last OB Lab Results: Blood Type O Positive 07/06/24 06:20 Antibody Screen Negative 07/06/24 06:20 Hct 26.8 % (36-46) L 07/06/24 06:20 Hgb 8.2 g/dL (12.0-16.0) L 07/06/24 06:20 Hep Bs Antigen Negative s/c (NEGATIVE) 12/06/24 12:17 Hepatitis C Antibody Negative s/c (NEGATIVE) 03/27/24 12:17 Rubella Antibody 7.2 IU/mL (>15) L 03/27/24 12:17 VZV IgG Antibody Non reactive (Non Reactive) 03/27/24 12:17 Group B Strep (PCR) Neg for grp b strep 06/16/24 10:11 -: Chlamydia screen: negative, Gonorrhea screen: negative and Urine: negative -: PAP smear: Normal Genetic Screens: Quad screen: Normal External Labs -: Urine: negative Prior (ies) Past Pregnancies Del. Date GA/Weeks Labor Lgth Wt Sex Route Outcome Anesthesia Place Delv Breastfeed Preg Comp Name 08/01/15 41 6 8 lb Female vaginal live - full term epidural [place], [place] 2 years none Kylar 07/26/20 38 6 8 lb 14 oz Male vaginal live - full term epidural [place], [place] 3 years none [place] 02/27/22 34 7 lb Male live - [facility] nearly 2 years placental abruption Huy Hx # Term Pregnancies: 2 Hx # Pregnancies: 1 Number of Living Children: 3 Evaluation Evaluation Baseline heart rate: 140 Variability: Average (6-10) monitor accelerations: Present Monitor Decelerations: Absent Category of Tracing: Reactive Status: Category l PFSH Medical History (Updated 06/16/24 @ 12:31 by Bentley Son MD) History of placental abruption Pelvic pain hemorrhage Prolonged bleeding time Vaginal delivery Surgical History (Updated 03/31/24 @ 09:46 by Roseanna Lynch RN) [place] teeth removed History of eye surgery (~1998) History of delivery (~2021) Family History (Updated 03/31/24 @ 09:49 by Roseanna Lynch RN) Granddaughter Hyperlipidemia Hypertension Stroke Father Hypertension Grandmother A-fib Grandfather Diabetes mellitus Colorectal cancer Social History marital status: unmarried,living together number of children: 3 household members: significant other and children lives independently: Yes caregiver/support person: Yes housing: house pets and animals: No education level: college 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 current occupational exposures/hazards: No special vna needs: No travel history: over 6 months ago seatbelt use: always water heater temp set < 120 deg: Yes working smoke detector in home: Yes fire extinguisher in home: Yes carbon monox detector in home: Yes firearms in home: No do you feel safe at home: Yes Smoking Status: Never smoker second hand exposure: No alcohol intake: never substance use type: does not use during the past year weight has: remained stable well-balanced diet: about half the time daily servings fruits/ve-4 (almost exclusively fruit, little to no veg) caffeine: Yes Type(s) of exercise: none Meds Home Medications and Allergies Home Medications Medication Instructions Recorded Confirmed Type dextroamphetamine-amphetamine ER 5 5 mg PO QAM #30 caps 09/26/23 06/26/24 Rx mg 24hr capsule,extend release (Adderall XR) [id number] 400 mcg-om3 35 mg-dha 25 tab PO 03/31/24 06/26/24 History mg-epa 5 mg-fish oil chewable tablet ondansetron 4 mg disintegrating 4 mg PO Q6H PRN nausea and 04/28/24 06/26/24 Rx tablet vomiting #20 tabs Allergies Allergy/AdvReac Type Severity Reaction Status Date / Time bupropion [From Wellbutrin] AdvReac Mild Verified 06/26/24 14:44 Review of Systems Review of Systems ROS: Yes All systems reviewed with the patient and are negative except as otherwise documented OB Exam HENMT Head: normal to inspection Resp Effort & Inspection: normal respiratory effort and able to speak in complete sentences Cardio Rate: regular rate GI Inspection: normal to inspection Palpation: Yes soft Other: gravid, andrew cephalic 6.5-7# pfannensteil scar noted Other: deferred Objective Labs 07/06/24 06:20 Labs: Laboratory Results - last 24 hr 07/06/24 06:20 WBC 9.7 RBC 4.26 Hgb 8.2 L Hct 26.8 L MCV 62.9 L MCH 19.3 L MCHC 30.7 RDW 20.6 H Plt Count 274 Neut % (Auto) 68.6 Lymph % (Auto) 18.4 L [place] % (Auto) 10.2 Eos % (Auto) 1.2 L Baso % (Auto) 1.6 Neut # (Auto) 6600 Lymph # (Auto) 1800 [place] # (Auto) 1000 H Eos # (Auto) 100 Baso # (Auto) 200 H RBC Morphology See below Hypochromasia 1+ H Anisocytosis 2+ H Microcytosis 2+ H Tear Drop Cells 1+ H Blood Type O Positive Antibody Screen Negative Assessment and Plan Assessment and Plan Assessment and Plan narrative: 28yo at 39w3d by 13wk US presents for scheduled repeat section Scheduled RCS Patient consented for procedure plan of care reviewed with anesthesia, plan for immediate pitocin, TXA to mitigate maternal blood loss set up 2 upRBC PNL as per admission symptomatic maternal anemia uterotonics in room low threshold for transfusion as indicated low threshold for iron transfusion as indicated Patient is consented for repeat section and additionally consents to transfusion of blood products as medically indicated. Risks, benefits and alternatives to procedure were reviewed including discussion of increased risk of intra-abdominal scar secondary to prior procedure, risk of damage to adjacent structures, increased risk of hemorrhage, low but possible risk of emergent hysterectomy. Patient verbalized understanding and desires to proceed dispo: to OR, anticipate routine /postop care Time-Based Coding :: [TOTAL MINUTES] spent with patient and on the chart (including review of chart, obtaining history, exam, reviewing outside data, placing orders, documenting exam and treatment plan, and counseling patient) on [DATE].
--- NOTE | 2024-07-06 07:27 | PM.PREOP ---
Pre-operative Note Interval Note History & Physical reviewed/Exam performed by Physician: Yes Changes to H&P: Yes H&P completed within 30 days and has changed as indicated here:: Pt no longer desires permanent surgical sterilization, consented solely for repeat section ASA Class (for procedural sedation): III
[2024-07-06] MEDS: CITRIC ACID/SODIUM CITRATE 15 ML SOLUTION 30 ML PO (07:39)
--- NOTE | 2024-07-06 08:20 | SUR.OPER ---
0818 BABY BOY BORN
[2024-07-06 08:56] VITALS: BP 115/78; PULSE 98; RESP 17; TEMP 36.1; O2SAT 100
[2024-07-06] MEDS: LACTATED RINGERS 1,000 ML 42 ML IV (08:58)
[2024-07-06 09:01] VITALS: BP 112/67; PULSE 90; RESP 12; O2SAT 100
[2024-07-06 09:06] VITALS: BP 113/74; PULSE 84; RESP 14; O2SAT 100
[2024-07-06 09:11] VITALS: BP 108/72; PULSE 82; RESP 14; TEMP 36.1; O2SAT 100
--- NOTE | 2024-07-06 09:28 | PM.OBCS.1 ---
Operative Date/Time/Diagnoses Date of procedure: 07/06/24 Time of procedure: 08:00 Pre-op diagnosis: 1) IUP at 39w3d 2) history of prior , indication for repeat Post-op diagnosis: same Procedure & Clinicians Procedure: repeat low transverse section Same procedure as scheduled: Yes Indications: 1) IUP at 39w3d 2) h/o prior CS with indication for repeat Surgeon: Risa Cook Sourcing Internship: Pia Ferrari Reason for Sourcing Internship: complexity of case, high risk maternal blood loss Anesthesia Type: Epidural Operative Notes Findings: LBMI in cephalic presentation light meconium noted at time of amniotomy normal appearing bilateral fallopian tubes and ovaries simple serous L para-ovarian cyst Closure Type: primary Specimen(s): cord blood Intraoperative meds administered: Acetaminophen, Pitocin and Tranexamic acid Estimated Blood Loss (mL): 650 Procedure in detail: Pt was taken to the operating room and transferred to OR table.? The spinal was placed per anesthesia.? The patient was placed in the supine position, prepped and draped in a sterile fashion.? Prior to incision the level of anesthesia was rechecked and found to be adequate.? A timeout was once again performed. A pfannensteil incision was made 2cm superior to the pubic symphysis in line with prior scar.? This incision was carried down sharply to the level of the rectus fascia with noted moderate scar consistent with prior procedure.? The fascia was incised sharply with knife and the incision was extended bilaterally and superiorly using campos scissors. The superior border of the fascia was elevated with two Nishant clamps and bluntly dissected off of the rectus muscles followed by incision of the median raphe.? Attention was then turned to the inferior border of the fascia which was dissected away from the underlying musculature in a similar manner down to the level of the pubic symphysis.? The rectus muscles were then in the midline and the peritoneum was identified.? The peritoneum was entered sharply under direct visualization.? The peritoneal opening was then extended manually.? The marsh buggy operator?s hand was inserted in the abdomen and the uterus was found to be in a mildly levo--rotated position. The bladder blade was then inserted. The vesicouterine peritoneum was identified, elevated using DeBakey forceps and incised in the midline using Metzenbaum scissors.? The incision was carried laterally and superiorly bilaterally.? A bladder flap was further developed digitally and the bladder blade was replaced.? Next, a low transverse incision was made in the uterus using the knife.? The incision was extended laterally and superiorly bilaterally bluntly.? The marsh buggy operator?s hand was then inserted into the uterus to find an infant in the vertex OP position.? The bladder blade was removed and infant?s vertex was grasped, flexed and brought to the incision where the was delivered atraumatically using fundal pressure.? The cord was doubly clamped and cut.? The was then passed to waiting pediatricians.? The placenta was delivered via gentle traction with additional manual extraction as necessary; the placenta was then passed off the field.? The uterus was exteriorized and the uterine cavity was wiped of all clots and debris.? The bladder blade was reinserted and the hysterotomy incision was repaired with #0 vicryl in a running locked fashion, followed by a second #0 vicryl in an imbricating fashion.? Tubes, ovaries and adnexae were visualized and a 3cm simple para-ovarian cyst was sharply resected with hemostasis noted of the wound bed. Remainder of survery grossly normal. The uterus was replaced into the abdomen without difficulty and the hysterotomy was noted to be hemostatic off of tension.? The rectus fascia was closed using #1 vicryl in a running fashion.? The incision was irrigated and hemostasis was achieved using the bovie.? The subcutaneous space was reapproximated using plain gut suture in a running fashion.? The skin was closed using 4-0 monocryl followed by application of steristrips and abdominal compression dressing.? All counts were correct x2.? The pt tolerated the procedure well and without difficulty. Fundal contents were expressed and fundus noted to be firm, level noted prior to patient transfer to PACU in stable condition.? Complications: none Baby 1: Delivery Date: 07/06/24 Delivery Time: 08:18 Infant Gender: Male Presentation: vertex Placental Delivery Description: Expressed Cord Vessel Description: 3 Vessels, Loose, Reduced and Around Body x1 score (1 min): 8 score (5 min): 9 Post-operative Condition: stable Disposition: PACU Aftercare: routine postop
[2024-07-06 11:17] LABS: Hematocrit 26.8 % (36-46); Hemoglobin 8.2 g/dL (12.0-16.0)
[2024-07-06] MEDS: LANOLIN OINT 7 GM 1 APPLIC TOP (14:18)
[2024-07-06] MEDS: ACETAMINOPHEN 325 MG TABLET 650 MG PO ×2 (14:19→20:22)
[2024-07-06] MEDS: KETOROLAC 30 MG/ML VIAL IV ×2 (14:19→20:22)
[2024-07-06] MEDS: OXYCODONE IR 5 MG TABLET PO (19:28)
[2024-07-07] MEDS: KETOROLAC 30 MG/ML VIAL IV (03:44)
[2024-07-07] MEDS: ACETAMINOPHEN 325 MG TABLET 650 MG PO ×4 (03:45→22:29)
[2024-07-07 06:31] LABS: Add Manual Diff / Slide Review NO; Basophils Absolute Auto 100 /uL (0-100); Basophils Percent Auto 0.9 % (0-2); Eosinophils Absolute Auto 100 /uL (0-450); Eosinophils Percent Auto 1.1 % (2-4); Hemoglobin 7.8 g/dL (12.0-16.0); Lymphocytes Absolute Auto 1800 /uL (1100-4500); Lymphocytes Percent Auto 17.3 % (25-40); Mean Corpuscular HGB Conc 31.2 % (30-36); Mean Corpuscular Hemoglobin 19.5 PG (26-34); Mean Corpuscular Volume 62.3 fL (80-100); Monocytes Absolute Auto 1000 /uL (0-900); Monocytes Percent Auto 9.4 % (3-14); Neutrophils Absolute Auto 7500 /uL (1500-7000); Neutrophils Percent Auto 71.3 % (50-75); Platelet Count 257 X10^3/uL (150-400); Red Blood Cell Count 4.01 X10^6/uL (4.0-5.2); Red Cell Distribution Width 20.7 % (11.6-14.8); White Blood Cell Count 10.5 X10^3/uL (4.5-11.0)
[2024-07-07 07:07] LABS: Anisocytosis 1+; Poikilocytosis 1+; Rouleaux 1+
--- NOTE | 2024-07-07 07:57 | PM.OBPN.1 ---
Subjective - OB Subjective Patient comments: no complaints, pain well controlled, incisional pain, tolerating diet and flatus present baby status: doing well [place] feeding status: exclusively breast feeding Date Patient Seen: 07/07/24 Time Patient Seen: 07:57 Exam Vital Signs (past 8 hours): Oxygen Delivery Method Room Air Const General: cooperative and comfortable Nutritional Appearance: average body habitus Orientation: alert and oriented x3 HENMT Head: normal to inspection, atraumatic and abrasion Ears: hearing grossly normal bilaterally Face and sinus: face symmetric Eyes General: appearance normal, both eyes and all related structures Conjunctivae: conjunctivae normal Sclera: sclerae normal EOM: EOM intact bilaterally Neck Neck: normal visual inspection Resp Effort & Inspection: normal respiratory effort and able to speak in complete sentences Auscultation: clear to auscultation bilaterally Cardio Rate: regular rate Rhythm: regular rhythm Heart Sounds: S1 normal, S2 normal and no murmurs GI Inspection: normal to inspection and incision (Surgical dressing clean and dry) Palpation: soft, no hepatosplenomegaly, mass (Firm, mildly tender fundus, U -3) and tender (Mild, diffuse postsurgical tenderness) Auscultation: normoactive bowel sounds External Female Exam: other (Light-moderate lochia) Extrem General: no calf tenderness Psych Appearance: grossly normal Mental Status: mental status grossly normal Speech and Movement: speech and movement normal Mood: congruent mood Affect: normal affect Attitude: cooperative Thought Process: normal Thought Content: normal Judgment: judgment good Objective Labs 07/07/24 06:12 Labs: Laboratory Results - last 24 hr 07/06/24 07/07/24 11:08 06:12 WBC 10.5 RBC 4.01 Hgb 8.2 L 7.8 L Hct 26.8 L 25.0 L MCV 62.3 L MCH 19.5 L MCHC 31.2 RDW 20.7 H Plt Count 257 Neut % (Auto) 71.3 Lymph % (Auto) 17.3 L [place] % (Auto) 9.4 Eos % (Auto) 1.1 L Baso % (Auto) 0.9 Neut # (Auto) 7500 H Lymph # (Auto) 1800 [place] # (Auto) 1000 H Eos # (Auto) 100 Baso # (Auto) 100 RBC Morphology Not Reportable Poikilocytosis 1+ H Anisocytosis 1+ H Rouleaux 1+ H Assessment & Plan Assessment and Plan (1) delivery, delivered, current hospitalization: Status: Acute Plan day: 1 plan OB: routine postop care Time-Based Coding :: 20 spent with patient and on the chart (including review of chart, obtaining history, exam, reviewing outside data, placing orders, documenting exam and treatment plan, and counseling patient) on 07/07/2024.
[2024-07-07] MEDS: SODIUM FERRIC GLUCONAT/SUCROSE 125 MG in SODIUM CHLORIDE 0.9% 100 ML 110 MG IV (08:35)
[2024-07-07] MEDS: LACTATED RINGERS 1,000 ML 42 ML IV (08:36)
[2024-07-07] MEDS: OXYCODONE IR 5 MG TABLET PO ×2 (08:45→11:43)
[2024-07-07] MEDS: IBUPROFEN 600 MG TABLET PO ×3 (10:03→22:30)
[2024-07-07] MEDS: OXYCODONE IR 10 MG TABLET PO ×3 (15:46→21:38)
--- NOTE | 2024-07-07 16:27 | DI.CT.S_ITS ---
PROCEDURE: CT ABDOMEN PELVIS W CON INDICATIONS: Severe post abd/pelvic pain TECHNIQUE: After the administration of intravenous contrast, axial sections acquired from the lung bases to the pubic symphysis. Coronal and sagittal reformats were performed. For radiation dose reduction, the following was used: automated exposure control, adjustment of mA and/or kV according to patient size. COMPARISON: None. FINDINGS: Image quality: Diagnostic. Lower Chest: No significant findings. ABDOMEN: Liver: No solid mass. Gallbladder: No radiopaque gallstones or wall thickening. Biliary ducts: No biliary dilation. Pancreas: No ductal dilation. Spleen: Size is within normal limits. Adrenal Glands: No adrenal nodules. Kidneys and Ureters: No hydronephrosis. No solid mass. No complex renal cystic lesion which requires follow up. Stomach and Bowel: There is no bowel obstruction. No abnormal bowel wall thickening or mesenteric fat stranding. Appendix is not definitively seen. No focal inflammatory changes are seen in right lower quadrant. Moderate fecal stasis in the colon is seen. No abscess collection. Peritoneum: No abnormal intraperitoneal fluid. Small amount of peritoneal free air in lower abdomen and pelvis is seen most consistent with iatrogenic air from recent section. Ventral Wall: No significant ventral hernia. Postsurgical changes are noted in anterior abdominal wall with subcutaneous emphysema and intramuscular air. No discrete drainable fluid collection is seen in abdominal/pelvic wall soft tissue. Abdominal Nodes: No retroperitoneal or mesenteric adenopathy by size criteria. Vessels: Aorta and inferior vena cava are normal in size. PELVIS: Pelvic Organs: Bulky appearing uterus consistent with recent status. No gross abnormality is seen in bilateral ovaries. Bladder: No bladder wall thickening, accounting for underdistention. Pelvic Nodes: No enlarged lymph nodes. Miscellaneous: No inguinal hernias are seen. Bones: No aggressive osseous abnormality. IMPRESSION: 1. Postsurgical changes from recent section. Bulky appearing uterus No abscess collection. No drainable fluid collection. 2. No evidence of bowel obstruction or abnormal bowel wall thickening. [id number] constipation. No CT evidence of acute appendicitis. No peritoneal free fluid or abscess collection. Dictated by: Dhiraj Ruelas M.D. on 07/07/2024 at 16:54 Approved by: Dhiraj Ruelas M.D. on 07/07/2024 at 16:57
[2024-07-07] MEDS: BISACODYL 10 MG SUPP PR (18:50)
[2024-07-07] MEDS: SIMETHICONE 80 MG TABLET PO (23:02)
[2024-07-08] MEDS: OXYCODONE IR 10 MG TABLET PO ×3 (00:45→11:11)
[2024-07-08] MEDS: IBUPROFEN 600 MG TABLET PO ×2 (05:23→11:10)
[2024-07-08] MEDS: ACETAMINOPHEN 325 MG TABLET 650 MG PO ×2 (05:24→11:09)
[2024-07-08] MEDS: PRENATAL VIT,CALC/IRON/FOLIC 1 TABLET 1 TAB PO (07:59)
[2024-07-08] MEDS: SIMETHICONE 80 MG TABLET PO (07:59)
--- NOTE | 2024-07-08 08:58 | PM.OBDS.1 ---
Discharge Providers Provider Date of admission: 07/06/24 05:55 Discharge Date: 07/08/24 Primary care physician: Makeda Hurt MD Consults: 07/06/24 09:25 Consult to Lifter/Driver Routine Comment: Discharge provider: Bentley Son MD Summary Hospital Course Date Patient Seen: 07/08/24 Time Patient Seen: 08:59 Diagnoses: Intrauterine , 39+ 3 weeks gestational age, delivered by repeat section Prior delivery History of placental abruption Chronic anemia Hospital Course: On 07/06/2024, Jeyson was admitted for repeat section. She underwent an uneventful repeat section on that date and full details of the procedure well summarized on the operative note of Dr. Risa Cook on that date. Following delivery, the patient has done extremely well with prompt return of bladder function, she is ambulating independently, tolerating a regular diet, and her pain is well controlled with oral pain medications. She has had some difficulty with abdominal pain following surgery and a CT with contrast of the abdomen and pelvis was negative for abscess, hematoma, or any other significant abnormality. Patient however was found to be constipated and attempts to relieve the patient's constipation have only been marginally successful prior to discharge. Due to the patient's pre-existing anemia, 2 iron infusions were provided following her delivery. She will be discharged at this time in an afebrile normotensive condition to home after counseling regarding precautionary symptoms, limitations of activity, medications, and plans for follow-up which will be in 1 week. Discharge medications will include resumption of her vitamins and oxycodone 5 mg p.o. Q 4-6 hours as needed for pain, dispensed 15 with no refills. Peripartum Data Delivery Method: Natural Vaginal Laceration Description: None Episiotomy description: None Procedures: Spinal block anesthetic Repeat section, low transverse cervical complications: none 1: Gender: Male Disposition of : home Discharge Diagnosis (1) delivery, delivered, current hospitalization: Status: Acute Time Spent with Patient Time attestation: Total time spent providing and/or coordinating discharge services: Objective Labs 07/07/24 06:12 Exam Vital Signs (past 8 hours): Oxygen Delivery Method Room Air Const General: cooperative and comfortable Nutritional Appearance: average body habitus Orientation: alert and oriented x3 HENMT Head: normal to inspection, atraumatic and abrasion Ears: hearing grossly normal bilaterally Face and sinus: face symmetric Eyes General: appearance normal, both eyes and all related structures Conjunctivae: conjunctivae normal Sclera: sclerae normal EOM: EOM intact bilaterally Neck Neck: normal visual inspection Resp Effort & Inspection: normal respiratory effort and able to speak in complete sentences Auscultation: clear to auscultation bilaterally Cardio Rate: regular rate Rhythm: regular rhythm Heart Sounds: S1 normal, S2 normal and no murmurs GI Inspection: normal to inspection and incision (Incision clean and dry, Aquacel applied) Palpation: soft, no hepatosplenomegaly and tender (Mild, diffuse postsurgical tenderness) External Female Exam: other (No significant bleeding noted) Extrem General: no calf tenderness Psych Appearance: grossly normal Mental Status: mental status grossly normal Speech and Movement: speech and movement normal Mood: congruent mood Affect: normal affect Attitude: cooperative Thought Process: normal Thought Content: normal Judgment: judgment good Discharge Plan Discharge Plan Patient Disposition: Home Provider Discharge Comment: Please review the written instructions you received when you were discharged from the hospital. Your follow-up appointment will be made for 1 week after delivery and I look forward to seeing you then. If however in the meanwhile you have any issues, concerns, or questions, please contact the office either by phone at [phone], or via the patient portal. Discharge orders & Medications Prescriptions: New oxycodone 5 mg tablet 5 mg PO Q4-6H PRN (Reason: pain) Qty: 15 0RF Continued [id number] oil 400 mcg-35 mg -25 mg-5 mg tablet,chewable See Rx Instructions .ROUTE .COMPLEX Rx Instructions: Take as directed Follow up/Referrals: Bentley Son MD [Physician] - Discharge Health Status Multidrug resistant organism: No MDRO Diet/Activity/Treatments Diet: Diet as Tolerated Activity: As tolerated Other treatments: [id number] Tylenol and/or ibuprofen may be used as needed for additional pain relief. Ntrp-yxg-wcaofek stool softeners, laxatives, and/or MiraLax may be used as needed for constipation. Skin/Wound/Dressing Care Report to your healthcare provider any signs of infection, such as:: chills, fever, increased pain, unusual drainage and unusual redness Dressing: Dressing will be removed at the time of your one-week postop visit Visit Report/Discharge Packet Instructions: DI for , DI for and Nipple Soreness, DI for Prescription Opioid Use Discharge Data Primary Care Provider: Makeda Hurt
[2024-07-08] MEDS: LACTATED RINGERS 500 ML 21 ML IV (09:36)
[2024-07-08] MEDS: SODIUM FERRIC GLUCONAT/SUCROSE 125 MG in SODIUM CHLORIDE 0.9% 100 ML 110 MG IV (09:36)
[2024-07-08 14:12] VITALS: BP 108/72; PULSE 82; RESP 14; TEMP 36.1
== END 2024-07-08 01:15 | disposition home or self-care (01) | DRG 540 ==
PROVIDERS: Obstetrics & Gynecology; Admitting Provider Obstetrics & Gynecology; PCP Family Medicine; Referring Provider Obstetrics & Gynecology; Visit Provider Obstetrics & Gynecology
PROC: 10D00Z1 Extraction of Products of Conception, Low, Open Approach (ICD-10-PCS; CPT 59514; principal; 2024-07-06 07:45)
DX: O34.211 Maternal care for low transverse scar from previous cesarean delivery (principal); Z3A.39 39 weeks gestation of pregnancy; Z37.0 Single live birth; O34.83 Maternal care for other abnormalities of pelvic organs, third trimester; N83.292 Other ovarian cyst, left side; O99.03 Anemia complicating the puerperium
CPT/HCPCS: 36415; 59050; 59514; 74177; 85014; 85018; 85025; 86850; 86900; 86901; J1100; J1885; J2274; J2405; J2704; J2916

== ENCOUNTER → 2025-01-23 08:56 | Outpatient (CLI) | payer OTHER, SELFPAY ==
[2025-01-23 10:13] LABS: Add Manual Diff / Slide Review NO; Hematocrit 35.8 % (36-46); Hemoglobin 12.2 g/dL (12.0-16.0); Lymphocytes Absolute Auto 1800 /uL (1100-4500); Mean Corpuscular HGB Conc 34.1 % (30-36); Mean Corpuscular Hemoglobin 28.1 PG (26-34); Mean Corpuscular Volume 82.3 fL (80-100); Platelet Count 166 X10^3/uL (150-400)
[2025-01-23 10:36] LABS: HEMOLYSIS < 15 (0-50); Iron 66 ug/dL (37-170)
[2025-01-23 10:49] LABS: Percent Iron Saturation 16 % (15-50); Total Iron Binding Capacity 408 ug/dL (265-497); Transferrin 324 mg/dL (206-381)
[2025-01-23 11:10] LABS: TSH w/ Reflex to FT4 2.09 uIU/mL (0.47-4.68)
[2025-01-23 11:11] LABS: Cortisol AM (Before 10AM) 11.3 ug/dL (4.46-22.7)
== END ==
PROVIDERS: PCP Family Medicine; Referring Provider Obstetrics & Gynecology; Visit Provider Obstetrics & Gynecology
DX: D64.9 Anemia, unspecified (principal); M62.81 Muscle weakness (generalized); R53.83 Other fatigue
CPT/HCPCS: 36415; 82533; 83021; 83540; 83550; 84443; 85025